=== PATIENT | female | born 1985 | race Caucasian/White ===

== ENCOUNTER 2020-11-18 09:06 | Emergency (ER) | payer OTHER ==
[2020-11-18] MEDS ORDERED: KETOROLAC 30 MG/ML INJ ONE (09:55)
[2020-11-18] MEDS ORDERED: HYDROCODONE/APAP 7.5/325 MG TAB ONE (10:44)
--- NOTE | 2020-11-18 11:34 | ER ---
Nurse's Notes [facility] Name: Kelly Clement Age: 35 yrs Sex: Female : 1985 Arrival Date: 11/18/2020 Time: 09:12 Bed 8 Private MD: Diagnosis: Sprain of unspecified site of right knee Presentation: 11/18 09:31 Chief complaint: Patient states: Standing yesterday and felt right knee pop, denies jl7 trauma, reports inability to bear weight and walk. Coronavirus screen: Client denies travel out of the [place] in the last 14 days. At this time, the client does not indicate any symptoms associated with coronavirus-19. Ebola Screen: No symptoms or risks identified at this time. Initial Sepsis Screen: Does the patient meet any 2 criteria? No. Patient's initial sepsis screen is negative. Does the patient have a suspected source of infection? No. Patient's initial sepsis screen is negative. Risk Assessment: Do you want to hurt yourself or someone else? Patient reports no desire to harm self or others. Onset of symptoms was November 17, 2020. Care prior to arrival: Medication(s) given: Motrin, Tylenol. 09:31 Method Of Arrival: Wheelchair jl7 09:31 Acuity: SAMIR 4 jl7 Triage Assessment: 09:33 General: Appears in no apparent distress. uncomfortable, Behavior is calm, cooperative, jl7 appropriate for age. Pain: Complains of pain in medial aspect of right knee and right knee Pain currently is 10 out of 10 on a pain scale. Neuro: Level of Consciousness is awake, alert, obeys commands, Oriented to person, place, time, situation. Cardiovascular: Patient's skin is warm and dry. Respiratory: Airway is patent Respiratory effort is even, unlabored, Respiratory pattern is regular, symmetrical. Derm: Skin is pink, warm \T\ dry. Musculoskeletal: Range of motion: limited in right knee. Injury Description: Right knee pain. 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 - Social history:: Smoking status: Patient denies any tobacco usage or history of. Patient/guardian denies using alcohol, street drugs, The patient lives with family. - Family history:: not pertinent. Screenin:35 Abuse screen: Denies threats or abuse. Denies injuries from another. Nutritional jl7 screening: No deficits noted. Tuberculosis screening: No symptoms or risk factors identified. Fall Risk Ambulatory Aid- Crutches/Cane/Walker (15 pts). Total Warren Fall Scale indicates No Risk (0-24 pts). Assessment: 09:35 General: See triage assessment. jl7 10:15 Reassessment: Pt reports no change in pain, ERD notified, see [facility] for orders. jl7 11:30 Reassessment: Patient appears in no apparent distress at this time. Patient and/or ld1 family updated on plan of care and expected duration. Pain level reassessed. Patient is alert, oriented x 3, equal unlabored respirations, skin warm/dry/pink. Patient states feeling better. Patient states symptoms have improved. Vital Signs: 09:31 BP 118 / 105; Pulse 70; Resp 17 S; Temp 97.7(TE); Pulse Ox 98% on R/A; Weight 68.04 kg; jl7 Height 5 ft. 6 in. (167.64 cm); Pain 10/10; 10:37 BP 114 / 84; Pulse 56; Resp 17; Pulse Ox 100% ; jl7 11:30 BP 118 / 84; Pulse 57; Resp 17; Pulse Ox 100% ; Pain 5/10; ld1 09:31 Body Mass Index 24.21 (68.04 kg, 167.64 cm) jl7 ED Course: 09:12 Patient arrived in ED. ds1 09:17 Mariaa Swanson, WILEY is Primary Nurse. ld1 09:22 Edward Crystal PA is PHCP. cp 09:31 Kourtney Ferrell MD is Attending Physician. ma2 09:33 Triage completed. jl7 09:33 Arm band placed on right wrist. jl7 09:35 Patient has correct armband on for positive identification. Bed in low position. Call [facility] light in reach. Side rails up X 1. Pulse ox on. NIBP on. 10:14 XRAY Knee RIGHT 3 view In Process Unspecified. EDMS 11:45 Knee immobilizer applied on. ld1 11:51 No provider procedures requiring assistance completed. Patient did not have IV access ld1 during this emergency room visit. Administered Medications: 09:52 Drug: TORadol 60 mg Route: IM; Site: right gluteus; ld1 10:37 Follow up: Response: No adverse reaction; Pain is unchanged, physician notified jl7 10:34 Drug: [place] (HYDROcodone-acetaminophen) (7.5 mg-325 mg) 1 tabs Route: PO; jl7 11:30 Follow up: Response: No adverse reaction; Pain is decreased ld1 Outcome: 11:33 Discharge ordered by . sailaja 11:45 Discharged to home via wheelchair, with family. ld1 11:45 Condition: stable 11:45 Discharge instructions given to patient, Instructed on discharge instructions, follow up and referral plans. medication usage, Demonstrated understanding of instructions, follow-up care, medications, Prescriptions given X 2. 11:53 Patient left the ED. ld1 Signatures: Dispatcher [employer] EDW[facility] Penelope Cardenas ds1 Edward Crystal PA PA cp Leal, Jahala RN RN jl7 Kourtney Ferrell MD MD ma2 Mariaa Swanson RN RN ld1
--- NOTE | 2020-11-18 11:34 | EDPHYS ---
Physician Documentation [facility] Name: Kelly Clement Age: 35 yrs Sex: Female : 1985 Arrival Date: 11/18/2020 Time: 09:12 Bed 8 Private MD: ED Physician Kourtney Ferrell HPI: 11/18 09:54 This 35 yrs old Female presents to ER via Wheelchair with complaints of Knee ma2 Injury. 09:54 Onset: The symptoms/episode began/occurred suddenly, 1 day(s) ago. Associated signs and ma2 symptoms: Pertinent negatives numbness, swelling, vomiting, warmth. Severity of symptoms: At their worst the symptoms were mild, in the emergency department the symptoms are unchanged. The patient has not experienced similar symptoms in the past. she had right knee pain while playing soccer, has knee swelling, no fall or knee trauma. 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 - Social history:: Smoking status: Patient denies any tobacco usage or history of. Patient/guardian denies using alcohol, street drugs, The patient lives with family. - Family history:: not pertinent. ROS: 09:54 Constitutional: Negative for fever, chills, and weight loss. ma2 09:54 All other systems are negative. Exam: 09:54 Constitutional: This is a well developed, well nourished patient who is awake, alert, ma2 and in no acute distress. Eyes: Pupils equal round and reactive to light, extra-ocular motions intact. Lids and lashes normal. Conjunctiva and sclera are non-icteric and not injected. Cornea within normal limits. Periorbital areas with no swelling, redness, or edema. ENT: Nares patent. No nasal discharge, no septal abnormalities noted. Tympanic membranes are normal and external auditory canals are clear. Oropharynx with no redness, swelling, or masses, exudates, or evidence of obstruction, uvula midline. Mucous membranes moist. Neck: Trachea midline, no thyromegaly or masses palpated, and no cervical lymphadenopathy. Supple, full range of motion without nuchal rigidity, or vertebral point tenderness. No Meningismus. Chest/axilla: Normal chest wall appearance and motion. Nontender with no deformity. No lesions are appreciated. Cardiovascular: Regular rate and rhythm with a normal S1 and S2. No gallops, murmurs, or rubs. Normal PMI, no JVD. No pulse deficits. Respiratory: Lungs have equal breath sounds bilaterally, clear to auscultation and percussion. No rales, rhonchi or wheezes noted. No increased work of breathing, no retractions or nasal flaring. Abdomen/GI: Soft, non-tender, with normal bowel sounds. No distension or tympany. No guarding or rebound. No evidence of tenderness throughout. Back: No spinal tenderness. No costovertebral tenderness. Full range of motion. Skin: Warm, dry with normal turgor. Normal color with no rashes, no lesions, and no evidence of cellulitis. MS/ Extremity: right knee with mild effusion and ttp, able range partially, no skinchanges. right foot strengtha nd sensation intact. pulses intact at dp and pt.l. Pulses equal, no cyanosis. Neurovascular intact. Full, normal range of motion. Neuro: Awake and alert, GCS 15, oriented to person, place, time, and situation. Cranial nerves II-XII grossly intact. Motor strength 5/5 in all extremities. Sensory grossly intact. Cerebellar exam normal. Normal gait. Vital Signs: 09:31 BP 118 / 105; Pulse 70; Resp 17 S; Temp 97.7(TE); Pulse Ox 98% on R/A; Weight 68.04 kg; jl7 Height 5 ft. 6 in. (167.64 cm); Pain 10/10; 10:37 BP 114 / 84; Pulse 56; Resp 17; Pulse Ox 100% ; jl7 11:30 BP 118 / 84; Pulse 57; Resp 17; Pulse Ox 100% ; Pain 5/10; ld1 09:31 Body Mass Index 24.21 (68.04 kg, 167.64 cm) jl7 MDM: 09:31 Patient medically screened. ma2 09:54 Differential diagnosis: dislocation, closed fracture, contusion, abrasion, tendonitis. ma2 11:33 Data reviewed: vital signs, nurses notes. Counseling: I had a detailed discussion [facility] the patient and/or guardian regarding: the historical points, exam findings, and any diagnostic results supporting the discharge/admit diagnosis, the presence of at least one elevated blood pressure reading (>120/80) during this emergency department visit, the need for outpatient follow up. Response to treatment: the patient's symptoms have markedly improved after treatment. 11/18 09:32 Order name: XRAY Knee RIGHT [facility] 11/18 11:10 Order name: Knee Immobilizer; Complete Time: 11:52 [facility] Administered Medications: 09:52 Drug: TORadol 60 mg Route: IM; Site: right gluteus; ld1 10:37 Follow up: Response: No adverse reaction; Pain is unchanged, physician notified jl7 10:34 Drug: [place] (HYDROcodone-acetaminophen) (7.5 mg-325 mg) 1 tabs Route: PO; jl7 11:30 Follow up: Response: No adverse reaction; Pain is decreased ld1 Disposition: 11/18/20 11:33 Discharged to Home. Impression: Sprain of unspecified site of right knee. - Condition is Stable. - Discharge Instructions: Knee Sprain, [id number]. - Prescriptions for Diclofenac Sodium 75 mg Oral Tablet Sustained Release - take 1 tablet by ORAL route 2 times per day; 30 tablet. Tylenol- Codeine #3 300-30 mg Oral Tablet - take 2 tablet by ORAL route every 4-6 hours As needed; 30 tablet. - Medication Reconciliation Form, Thank You Letter, Antibiotic Education, Prescription Opioid Use form. - Follow up: Private Physician; When: Tomorrow; Reason: Recheck today's complaints, Continuance of care. - Notes: follow up with pcp in 1 week for possible MRI Signatures: Dispatcher [employer] Kasey Abebe RN RN jl7 Kourtney Ferrell MD MD ma2 Mariaa Swanson RN RN ld1 Corrections: (The following items were deleted from the chart) 11:53 11:33 11/18/2020 11:33 Discharged to Home. Impression: Sprain of unspecified site of ld1 right knee. Condition is Stable. Prescriptions for Diclofenac Sodium 75 mg Oral Tablet Sustained Release - take 1 tablet by ORAL route 2 times per day; 30 tablet. and Forms are Medication Reconciliation Form, Thank You Letter, Antibiotic Education, Prescription Opioid Use. Follow up: Private Physician; When: Tomorrow; Reason: Recheck today's complaints, Continuance of care. ma2
--- NOTE | 2020-11-18 12:53 | RAD REPORT ---
EXAM DESCRIPTION: RAD - Knee Right 3 View - 11/18/2020 10:14 am CLINICAL HISTORY: PAIN COMPARISON: No comparisons FINDINGS: No fracture, dislocation or periosteal reaction.Trace amount of fluid in the joint space s uperior to the patella. No joint space narrowing. No foreign body or other soft tissue abnormality. No prior knee surgery history noted. IMPRESSION: Trace amount of joint fluid in with no acute bone finding. Clinical concerns for internal derangement or occult bony injury could be further assessed with MR im aging.
[2020-11-19 01:45] VITALS: TEMP 97.7
[2020-11-19 01:46] VITALS: O2SAT 100
[2020-11-19 01:48] VITALS: BP 118/84
== END 2020-11-18 11:53 | disposition home or self-care (01) ==
LOC: ER 09:06
DX: S83.91XA Sprain of unspecified site of right knee, initial encounter (principal); Y93.66 Activity, soccer; F41.9 Anxiety disorder, unspecified
CPT/HCPCS: 96372; 99284